=== PATIENT | male | born 1980 | race Caucasian/White ===

== ENCOUNTER → 2018-01-16 | Outpatient (CLI) | payer OTHER ==
[2018-01-16 14:40] LABS: Anisocytosis Slight; Basophils # (A) 0.1 k/uL (0-0.2); Basophils % (A) 1 %; Eosinophils # (A) 0.2 k/uL (0-0.7); Eosinophils % (A) 3 %; HCT 45.5 % (39.0-53.0); HGB 14.8 gm/dL (13.0-17.5); Lymphocytes # (A) 1.7 k/uL (1.0-4.8); Lymphocytes % (A) 28 %; MCH 30.5 pg (25.0-35.0); MCHC 32.4 g/dL (31.0-37.0); MCV 94.1 fL (80.0-100.0); Mean Platelet Volume 7.1; Monocytes # (A) 0.4 k/uL (0-1.0); Monocytes % (A) 6 %; Neutrophils # (A) 3.7 k/uL (1.3-7.7); Neutrophils % (A) 59 %; Platelet Count 198 k/uL (150-450); RBC 4.84 m/uL (4.30-5.90); RDW 16.8 % (11.5-15.5); WBC 6.2 k/uL (3.8-10.6)
[2018-01-16 15:08] LABS: Anion Gap 8 mmol/L; Blood Urea Nitrogen 7 mg/dL (9-20); Calcium 9.7 mg/dL (8.4-10.2); Carbon Dioxide 25 mmol/L (22-30); Chloride 104 mmol/L (98-107); Glucose 97 mg/dL (74-99); Potassium 3.8 mmol/L (3.5-5.1); Sodium 137 mmol/L (137-145)
== END | disposition home or self-care (01) ==
LOC: LABPAT 13:50
PROVIDERS: ATTEND Urology
DX: Z01.812 Encounter for preprocedural laboratory examination (principal); D41.01 Neoplasm of uncertain behavior of right kidney; Z79.899 Other long term (current) drug therapy
CPT/HCPCS: 80048; 85025

== ENCOUNTER 2018-01-23 10:50 | Inpatient (IN) | payer OTHER ==
[2018-01-17 12:02] VITALS: BMI 24.0
--- NOTE | 2018-01-20 19:38 | P.GSHP ---
History of Present Illness H&P Date: 01/20/18 Chief Complaint: Right renal mass The patient is a 37-year-old white male evaluated for abnormal liver function tests. An abdominal ultrasound revealed a renal mass, which was confirmed by computed tomography scan. The mass measures 3.9 cm and is complex in nature, suspicious for renal cell carcinoma. The mass is located in the right upper pole, and is close enough to the collecting system that a partial nephrectomy is not felt to be feasible. - Constitutional Constitutional: Reports sweats, Reports weakness - Cardiovascular Cardiovascular: Reports high blood pressure, Denies chest pain - Gastrointestinal Gastrointestinal: Reports heartburn, Reports indigestion, Reports nausea, Reports vomiting - Genitourinary (Female) Genitourinary: Denies dysuria, Denies flank pain, Denies hematuria Past Medical History Past Medical History: GERD/Reflux, Hypertension Additional Past Medical History / Comment(s): right renal mass, hiatel hernia, herniated disc S2, previous back injury feb 2016, bri feet numbness, left calf constant state of cramping and is bigger than rt calf, hx "cyst outside of kidney" 2015 History of Any Multi-Drug Resistant Organisms: None Reported Additional Past Surgical History / Comment(s): EGD Past Anesthesia/Blood Transfusion Reactions: No Reported Reaction Smoking Status: Current every day smoker - Past Family History Father Family Medical History: Cancer Medications and Allergies Home Medications Medication Instructions Recorded Confirmed Type ALPRAZolam [Xanax] 0.25 mg PO DAILY PRN 01/17/18 01/17/18 History Citalopram Hydrobromide [CeleXA] 40 mg PO AC-LUNCH 01/17/18 01/17/18 History Metoprolol Succinate (ER) [Toprol 25 mg PO DAILY 01/17/18 01/17/18 History Xl] Ranitidine HCl [Zantac] 75 mg PO DAILY 01/17/18 01/17/18 History Allergies Allergy/AdvReac Type Severity Reaction Status Date / Time No Known Allergies Allergy Verified 01/17/18 11:38 Surgical - Exam - General well developed, well nourished, no distress - Neck no masses, trachea midline - Respiratory normal respiratory effort, clear to auscultation - Cardiovascular Rhythm: regular Abnormal Heart Sounds: no systolic murmur - Abdomen Abdomen: soft, non tender, no guarding, no rigid, no rebound - Genitourinary normal penis with no external lesions, testicles non-tender - Rectum Rectum: normal sphincter tone, no masses - Psychiatric oriented to time, oriented to person, oriented to place, speech is normal, memory intact Results - Imaging CT scan - abdomen: report reviewed, image reviewed Assessment and Plan (1) Neoplasm of unspecified behavior of right kidney Status: Acute Code(s): D49.511 - NEOPLASM OF UNSPECIFIED BEHAVIOR OF RIGHT KIDNEY SNOMED Code(s): 204452127 Plan: The patient was advised that the majority of renal masses are malignant. Renal mass biopsy is usually discouraged. Standard treatment of renal masses is a radical nephrectomy. This can be performed via an open or laparoscopic approach. He has elected to undergoan open right radical nephrectomy. Because the mass is located in the upper pole, it will be necessary to remove the adrenal gland. I explained the procedure in detail, as well as the possible complications of this surgical procedure. These complications include anesthesia, bleeding, wound infection, bowel injury, post-op ileus, bowel obstruction, and chylous ascites. I also discussed the consideration of decreased renal function on a short-term and long-term basis.
[~2018-01-23 10:50] MED LIST: DEXAMETHASONE SOD PHOSPHATE 10 MG/ML 1 ML VIAL IV ONE; HYDROmorphone 0.5 MG/0.5 ML SYRINGE IVP PRN; HYDROmorphone 1 MG/ML 1 ML SYRINGE IVP PRN; ONDANSETRON 4 MG/2 ML VIAL IVP ONE; ceFAZolin IN SWFI 2 GM/20 ML SYRINGE IVP ONE
[2018-01-23] MEDS ORDERED: LIDOCAINE 1% 20 ML VIAL (10MG/ML) FOR IV START INTRADERMA ONE (11:51)
[2018-01-23] MEDS: LACTATED RINGERS 1,000 ML IV SCH (11:56)
[2018-01-23] MEDS ORDERED: HEPARIN SODIUM,PORCINE 5,000 UNIT/ML 1 ML VIAL SQ ONE (12:00)
[2018-01-23] MEDS ORDERED: fentaNYL (PF) 50 MCG/ML 2 ML AMP ONE ×2 (12:25→13:03)
[2018-01-23] MEDS: MIDAZOLAM 2 MG/2 ML VIAL IV PRN ×3 (12:31→15:20)
[2018-01-23] MEDS ORDERED: fentaNYL (PF) 50 MCG/ML 2 ML AMP IV ONE (12:31)
[2018-01-23] MEDS ORDERED: NALOXONE 0.4 MG/ML 1 ML VIAL IV PRN (12:58)
[2018-01-23] MEDS ORDERED: SUCCINYLCHOLINE CHLORIDE 100 MG/5 ML SYR IV ONE (13:03)
[2018-01-23] MEDS ORDERED: PROPOFOL 10 MG/ML 20 ML VIAL IV ONE (13:03)
[2018-01-23] MEDS ORDERED: LIDOCAINE 1% INJ 10MG/ML (20 ML MDV) ONE (13:03)
[2018-01-23] MEDS ORDERED: HEPARIN SODIUM,PORCINE 5,000 UNIT/ML 1 ML VIAL ONE (13:03)
[2018-01-23] MEDS ORDERED: GLYCOPYRROLATE 0.2 MG/ML 2 ML VIAL ONE (13:03)
[2018-01-23] MEDS ORDERED: VECURONIUM 10 MG VIAL IV ONE (13:03)
[2018-01-23] MEDS ORDERED: MIDAZOLAM 2 MG/2 ML VIAL ONE (13:03)
[2018-01-23] MEDS ORDERED: NEOSTIGMINE 1 MG/ML 10 ML VIAL ONE (13:03)
[2018-01-23] MEDS ORDERED: LACTATED RINGERS 1,000 ML IV ONE ×2 (13:25→15:35)
--- NOTE | 2018-01-23 14:43 | P.OP ---
Date of Procedure: 01/23/18 Preoperative Diagnosis: Right Renal Mass Postoperative Diagnosis: Same Procedure(s) Performed: Right Radical Nephrectomy Anesthesia: GETA, epidural Surgeon: Kendall Alejandra Apparatus Lineman #1: Darryl Jurado Estimated Blood Loss (ml): 150 IV fluids (ml): 1,350 Pathology: other (right kidney) Condition: stable Disposition: PACU Indications for Procedure: The patient is a 37-year-old white male evaluated for abnormal liver function tests. An abdominal ultrasound revealed a renal mass, which was confirmed by computed tomography scan. The mass measures 3.9 cm and is complex in nature, suspicious for renal cell carcinoma. The mass is located in the right upper pole, and is close enough to the collecting system that a partial nephrectomy is not felt to be feasible. Operative Findings: Right upper pole renal mass. No evidence of extrarenal disease. Description of Procedure: The patient was taken to the operating room and placed in the supine position. After being given general anesthesia, the abdomen was prepped and draped sterilely. A right-sided chevron incision was made using the scalpel. The Bovie electrocautery was used to incise the subcutaneous tissues and muscular layers of the abdominal wall down to the peritoneum. The peritoneum was then carefully entered, and opened the full length of the incision. The abdomen was examined, and no abnormalities were noted other than the renal mass. Specifically, there was no evidence of malignancy elsewhere within the abdomen. The Bookwalter retractor was used for exposure. The peritoneum was incised at the line of Toldt, and a Jeni maneuver was performed. This exposed the right kidney and the inferior vena cava. The gonadal vein was isolated and dissected medially. Dissection was then performed alongside the lateral aspect of the inferior vena cava. Lymphoadipose tissue was clipped and divided up to the renal hilum. There was no evidence of adenopathy. the right renal vein was isolated. The right renal artery was identified posterior to the vein. This was isolated, then ligated twice proximally and once distally using 2-0 silk ties, and divided. The left renal vein was then likewise ligated twice proximally and distally prior to dividing it. The remaining hilar tissues were clipped and divided at this time. Once the hilar dissection had been completed, the inferior aspect of the dissection was performed. The tail of Gerota's fascia was isolated, and the ureter was clipped and divided. The remaining adipose tissue making up the patella of Gerota's fascia was ligated and divided. Blunt dissection was then performed to dissect the kidney off of the posterior abdominal wall. Superiorly , the perinephric fat was divided down to the upper pole of the kidney, thus preserving the right adrenal gland. The superior attachments were clipped prior to dividing them. Once all attachments were divided, the specimen was removed. The surgical field was examined for hemostasis. Some oozing was noted from the superomedial attachments, and these were controlled with electrocautery. Hemostasis within the entire surgical field was subsequently excellent. The Bookwalter retractor was removed. The abdominal contents were allowed to return to their normal location. Each individual muscle layer of the anterior abdominal wall was closed using #1 Vicryl suture in a running fashion. Hemostasis within the subcutaneous tissues was excellent. The skin was closed using amna. A sterile gauze dressing was applied over the incision. All sponge and needle counts were correct. The patient tolerated the procedure well was taken to the recovery room in stable condition.
[2018-01-23] MEDS ORDERED: HYDROmorphone 1 MG/ML 1 ML SYRINGE IVP PRN (14:44)
[2018-01-23] MEDS ORDERED: ACETAMINOPHEN TAB 325 MG TAB PO PRN (14:44)
[2018-01-23] MEDS ORDERED: HYDROcodone/APAP 5-325MG 1 EACH TAB PO PRN ×2 (14:47)
[2018-01-23] MEDS ORDERED: diphenhydrAMINE 50 MG/ML 1 ML VIAL IVP ONE (14:49)
[2018-01-23 14:50] LABS: Glucose,Whole Blood 109 mg/dL (75-99)
[2018-01-23] MEDS ORDERED: hydrALAZINE HCL 20 MG/ML 1 ML VIAL IVP ONE (15:09)
[2018-01-23] MEDS: DEXTROSE 5%-0.45% NACL 1,000 ML IV SCH (17:04)
[2018-01-23] MEDS: NICOTINE 21MG/24HR PATCH TRANSDERM SCH (17:57)
[2018-01-23] MEDS: HEPARIN SODIUM,PORCINE 5,000 UNIT/ML 1 ML VIAL SQ SCH (22:26)
[2018-01-23] MEDS: MORPHINE SULFATE 2 MG/ML SYRINGE IVP PRN (22:30)
[2018-01-24] MEDS: MORPHINE SULFATE 2 MG/ML SYRINGE IVP PRN ×8 (00:48→23:51)
[2018-01-24] MEDS: DEXTROSE 5%-0.45% NACL 1,000 ML IV SCH ×3 (00:50→21:24)
[2018-01-24] MEDS: LACTATED RINGERS 1,000 ML IV SCH (05:39)
[2018-01-24] MEDS: ROPIVACAINE 250 MG, fentaNYL (PF) 1,250 MCG in SODIUM CHLORIDE 0.9% 175 ML EPIDURAL PRN (07:11)
[2018-01-24 07:57] LABS: Anisocytosis Slight; Basophils % (A) 0 %; Eosinophils % (A) 0 %; HGB 13.7 gm/dL (13.0-17.5); Lymphocytes # (A) 1.6 k/uL (1.0-4.8); Lymphocytes % (A) 12 %; MCH 30.8 pg (25.0-35.0); MCHC 32.7 g/dL (31.0-37.0); MCV 94.3 fL (80.0-100.0); Mean Platelet Volume 7.4; Monocytes # (A) 0.9 k/uL (0-1.0); Monocytes % (A) 7 %; Neutrophils # (A) 10.4 k/uL (1.3-7.7); Neutrophils % (A) 79 %; Platelet Count 173 k/uL (150-450); RBC 4.46 m/uL (4.30-5.90); RDW 16.1 % (11.5-15.5)
[2018-01-24] MEDS: METOPROLOL SUCCINATE (ER) 25 MG TAB.ER.24H PO SCH (08:27)
[2018-01-24] MEDS: FAMOTIDINE 20 MG TAB PO SCH (08:27)
[2018-01-24] MEDS: NICOTINE 21MG/24HR PATCH TRANSDERM SCH (08:27)
[2018-01-24] MEDS: HEPARIN SODIUM,PORCINE 5,000 UNIT/ML 1 ML VIAL SQ SCH ×2 (08:27→21:22)
--- NOTE | 2018-01-24 10:02 | P.PN ---
Progress Note - Text Progress Note Date: 01/24/18 Postoperative day #1 status post right radical nephrectomy ,epidural catheter placed for postoperative analgesia, patient doing well epidural site okay, patient currently on combination of epidural infusion solution of Ropivacaine 0.0625% and Dilaudid 20 g per mL the infusion rate at 12 ml per hour , patient had no motor deficit epidural site okay , vital signs stable ,VAS 4 /10 , requiring breakthrough medication IV morphine 2 mg when necessary Assessment and plan= post operative day #1 patient doing well ,pain well controlled , there is no anesthesia related complications
[2018-01-24] MEDS: CITALOPRAM HYDROBROMIDE 20 MG TAB PO SCH (13:17)
[2018-01-24] MEDS ORDERED: Acetaminophen-Codeine 300-30mg TAB PO PRN (14:07)
[2018-01-25] MEDS: ROPIVACAINE 250 MG, fentaNYL (PF) 1,250 MCG in SODIUM CHLORIDE 0.9% 175 ML EPIDURAL PRN (03:07)
[2018-01-25] MEDS: MORPHINE SULFATE 2 MG/ML SYRINGE IVP PRN ×2 (03:11→07:27)
[2018-01-25] MEDS: LACTATED RINGERS 1,000 ML IV SCH (06:12)
[2018-01-25] MEDS: DEXTROSE 5%-0.45% NACL 1,000 ML IV SCH ×2 (06:50→15:00)
[2018-01-25] MEDS: FAMOTIDINE 20 MG TAB PO SCH (08:00)
[2018-01-25] MEDS: METOPROLOL SUCCINATE (ER) 25 MG TAB.ER.24H PO SCH (08:00)
[2018-01-25] MEDS: NICOTINE 21MG/24HR PATCH TRANSDERM SCH (08:01)
[2018-01-25] MEDS: HEPARIN SODIUM,PORCINE 5,000 UNIT/ML 1 ML VIAL SQ SCH ×2 (08:01→19:49)
--- NOTE | 2018-01-25 08:26 | P.PN ---
Progress Note - Text Date: 01/25/2018 Time: 802 The patient is status post, right radical nephrectomy, postoperative day number 2 The patient has no complaints of nausea vomiting or headache. The patient does not complain of any lower extremity numbness or weakness. The epidural is running at 12 mL per hour. VAS 3-4-10. The patient is requiring morphine for breakthrough pain. The epidural will be maintained and adjusted as needed.
[2018-01-25] MEDS ORDERED: Acetaminophen-Codeine 300-30mg TAB PO PRN (12:02)
[2018-01-25] MEDS: CITALOPRAM HYDROBROMIDE 20 MG TAB PO SCH (12:06)
--- NOTE | 2018-01-25 12:07 | P.PN ---
Subjective Progress Note Date: 01/25/18 The patient is 48 hours status post right radical nephrectomy. He is doing relatively well. His pain is controlled. I'll switch him to oral pain medication. If he does well he can be discharged home later today. The Goodwin catheter will be removed. Path report is pending. Condition is good upon discharge. Objective - Vital Signs Vital signs: Vital Signs Temp 98.2 F 01/25/18 07:45 Pulse 76 01/25/18 07:45 Resp 18 01/25/18 07:45 BP 162/100 01/25/18 07:45 Pulse Ox 93 L 01/25/18 07:45 Intake & Output 01/24/18 01/25/18 01/25/18 18:59 06:59 18:59 Intake Total 540 1999.2 Output Total 1500 1000 Balance -960 999.2 Intake: Intake, IV Titration 919.2 Amount Dextrose 5%-0.45% NaCl 1, 680 000 ml @ 100 mls/hr IV . Q10H ZULEYKA Rx#:[id number] Ropivacaine 250 mg 239.2 fentaNYL (PF) 1,250 mcg In Sodium Chloride 0.9% 175 ml @ Per Protocol EPIDURAL .Q0M PRN Rx#: [id number] Oral 540 1080 Output: Urine 1500 1000 Uretheral (Goodwin) 1500 Other: Voiding Method Indwelling Catheter Indwelling Catheter Indwelling Catheter # Voids 1 - Labs CBC & Chem 7: 01/24/18 06:31
--- NOTE | 2018-01-25 12:08 | P.DS ---
Providers Date of admission: 01/23/18 10:50 Attending physician: Kendall Alejandra Primary care physician: [facility] Course: The patient was admitted 48 hours ago for a right radical nephrectomy for right renal mass. This was done uneventfully. He has done well on the last 48 hours. The epidural be removed as well the catheter today. If he voids well and his pain is controlled with oral medication will be discharged home later today. He'll follow-up in our office in one week. Pathology is pending vital signs are stable condition is good. Patient Condition at Discharge: Good Plan - Discharge Summary Discharge Rx Participant: Yes New Discharge Prescriptions: New Acetaminophen-Codeine 300-30mg [Tylenol w/codeine #3] 1 tab PO Q4H PRN 3 Days #18 tablet PRN Reason: Pain No Action ALPRAZolam [Xanax] 0.25 mg PO DAILY PRN PRN Reason: Anxiety Ranitidine HCl [Zantac] 75 mg PO DAILY Citalopram Hydrobromide [CeleXA] 40 mg PO AC-LUNCH Metoprolol Succinate (ER) [Toprol Xl] 25 mg PO DAILY Discharge Medication List ALPRAZolam [Xanax] 0.25 mg PO DAILY PRN 01/17/18 [History] Citalopram Hydrobromide [CeleXA] 40 mg PO AC-LUNCH 01/17/18 [History] Metoprolol Succinate (ER) [Toprol Xl] 25 mg PO DAILY 01/17/18 [History] Ranitidine HCl [Zantac] 75 mg PO DAILY 01/17/18 [History] Acetaminophen-Codeine 300-30mg [Tylenol w/codeine #3] 1 tab PO Q4H PRN 3 Days # 18 tablet 01/25/18 [Rx] Follow up Appointment(s)/Referral(s): Kendall Alejandra MD [STAFF PHYSICIAN] - 1 Week Discharge Disposition: HOME SELF-CARE
[2018-01-25] MEDS ORDERED: MORPHINE SULFATE 2 MG/ML SYRINGE IVP PRN (12:09)
[2018-01-25] MEDS: Acetaminophen-Codeine 300-30mg TAB PO PRN ×2 (19:49→23:47)
[2018-01-26 01:57] VITALS: RESP 18
[2018-01-26 02:01] VITALS: BP 156/90; PULSE 67; TEMP 98.2
[2018-01-26] MEDS: DEXTROSE 5%-0.45% NACL 1,000 ML IV SCH (03:01)
[2018-01-26] MEDS: LACTATED RINGERS 1,000 ML IV SCH (05:53)
--- NOTE | 2018-01-26 06:26 | P.PN ---
Subjective Progress Note Date: 01/24/18 Principal diagnosis: POD #1, s/p right radical nephrectomy. Patient has no specific complaints. He is hungry and has passed flatus. Objective - Vital Signs Vital signs: Vital Signs Temp 98.4 F 01/24/18 00:02 Pulse 96 01/24/18 00:02 Resp 16 01/24/18 00:02 BP 134/89 01/24/18 00:02 Pulse Ox 92 L 01/24/18 00:02 Intake & Output 01/23/18 01/23/18 01/24/18 06:59 18:59 06:59 Intake Total 1999 2277 Output Total 190 1480 Balance 1810 797 Weight 78.018 kg Intake: IV 2000 Intake, IV Titration 1017 Amount Dextrose 5%-0.45% NaCl 1, 850 000 ml @ 100 mls/hr IV . Q10H ZULEYKA Rx#:[id number] Ropivacaine 250 mg 167 fentaNYL (PF) 1,250 mcg In Sodium Chloride 0.9% 175 ml @ Per Protocol EPIDURAL .Q0M PRN Rx#: [id number] Oral 1260 Output: Urine 40 1480 Estimated Blood Loss 150 Other: Voiding Method Indwelling Catheter Indwelling Catheter # Voids 1 # Bowel Movements 0 - Constitutional General appearance: Present: cooperative, no acute distress - Gastrointestinal Gastrointestinal Comment(s): dressing intact with a small amount of sanguinous drainage medially General gastrointestinal: Present: soft. Absent: distended - Psychiatric Psychiatric: Present: A&O x's 3 - Labs CBC & Chem 7: 01/24/18 06:31 Labs: Abnormal Lab Results - Last 24 Hours (Table) 01/23/18 Range/Units 14:47 POC Glucose (mg/dL) 109 H (75-99) mg/dL Assessment and Plan (1) Neoplasm of unspecified behavior of right kidney Current Visit: No Status: Acute Code(s): D49.511 - NEOPLASM OF UNSPECIFIED BEHAVIOR OF RIGHT KIDNEY SNOMED Code(s): 492079227 Plan: Patient is doing well. Will begin CLD, advance as tolerated. Increase ambulation.
[2018-01-26] MEDS: Acetaminophen-Codeine 300-30mg TAB PO PRN (07:50)
--- NOTE | 2018-01-28 16:31 | CDI ---
Last Revision, May 2017 Documentation Clarification Form Date: 01/28/18 From: Ana De Leon Phone: If you have a question regarding this query, please contact Fatmata Woo at [phone] between 8am and 5pm. Admit Date: 01/23/2018 10:50:00 AM Patient Name: Arnold Dao Visit Number: [id number] Discharge Date: 01/26/18 ATTENTION: The Clinical Documentation Specialists (CDI) and [facility] Coding Staff appreciate your assistance in clarifying documentation. Please respond to the clarification below the line at the bottom and electronically sign. The CDI & [facility] Coding staff will review the response and follow-up if needed. Please note: Queries are made part of the Legal Health Record. If you have any questions, please contact the author of this message via ITS. 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 Documentation states: Suspicious for renal cell carcinoma is documented in the H &P and in the procedure note. Patient history/risk factors: Patient has a history of hypertension, GERD and is a smoker. Clinical Indicators: Renal mass. Treatment: Right radical nephrectomy. In your professional opinion, do you agree with the pathology report specifying clear cell renal cell carcinoma as the principle diagnosis? Yes i agree No Other (please specify) Unable to determine yes MTDD
== END 2018-01-26 08:19 | disposition home or self-care (01) | DRG 658 ==
LOC: 2ORMAIN 10:50 → 3SUR 14:39
PROVIDERS: ADMIT Urology; ATTEND Urology
PROC: 0TT00ZZ Resection of Right Kidney, Open Approach (ICD-10-PCS; principal; 2018-01-23 12:15)
DX: C64.1 Malignant neoplasm of right kidney, except renal pelvis (principal); I10 Essential (primary) hypertension; K21.9 Gastro-esophageal reflux disease without esophagitis; F17.210 Nicotine dependence, cigarettes, uncomplicated; K44.9 Diaphragmatic hernia without obstruction or gangrene; M53.3 Sacrococcygeal disorders, not elsewhere classified; Z79.899 Other long term (current) drug therapy; Z80.9 Family history of malignant neoplasm, unspecified
CPT/HCPCS: 85025; 86850; 86900; 86901; 88307

== ENCOUNTER → 2023-09-06 | Outpatient (CLI) | payer OTHER ==
--- NOTE | 2023-09-12 10:48 | MR ---
EXAMINATION TYPE: MR brain wo con DATE OF EXAM: 09/06/2023 COMPARISON: None HISTORY: Lightheaded, Dizzy, Nausea, Lack of Balance, Anxiety, Muscle Spasms, Weakness/Numbness Left side, Hx Renal Cancer [id number] with kidney removed, Family history of MS CONTRAST: Performed utilizing 0 mL intravenous Gadavist gadolinium contrast. TECHNIQUE: Multiplanar, multiecho imaging on a 3.0 Anastasiya magnet is performed through the brain. Stud y is performed within 24 hours of arrival to the hospital. The craniovertebral junction is normal. The pituitary is normal. Optic chiasm appears normal Diffusion-weighted imaging is performed. No abnormal hyperintensity is present to suggest an acute i ntracranial infarct or acute ischemic change. Signal through the brain appears normal. Ventricles and sulci are appropriate for the patient age. IMPRESSION: 1. No suspicious acute intracranial changes
== END | disposition home or self-care (01) ==
LOC: RADMRIMAIN 15:24
PROVIDERS: ATTEND Family Medicine
DX: R29.898 Other symptoms and signs involving the musculoskeletal system (principal); R42 Dizziness and giddiness; R11.0 Nausea; M62.838 Other muscle spasm; F41.9 Anxiety disorder, unspecified; R20.0 Anesthesia of skin; Z85.528 Personal history of other malignant neoplasm of kidney; Z82.0 Family history of epilepsy and other diseases of the nervous system; Z90.5 Acquired absence of kidney
CPT/HCPCS: 70551